=== PATIENT | male | born 1985 | race Caucasian/White ===

== ENCOUNTER 2016-11-24 04:07 | Emergency (ER) | payer SELFPAY ==
[2016-11-24 04:28] VITALS: BP 134/95; TEMP 97.9; O2SAT 96
[2016-11-24] MEDS ORDERED: predniSONE 20 MG TAB PO ONE (04:42)
[2016-11-24] MEDS ORDERED: SULFA/TRIMETH 800/160 (DS) TAB 1 EA TAB PO ONE (04:44)
--- NOTE | 2016-11-24 04:45 | ED.PDOC ---
History of Present Illness - General Chief Complaint: Skin/Abrasion/Tear Stated Complaint: rash Time Seen by Provider: 11/24/16 04:35 Source: patient Exam Limitations: no limitations - History of Present Illness Initial Comments: the patient is a 31-year-old male presenting to the emergency room secondary to rash caused by poison niurka it has been present for more than one week. The patient has been putting on calamine lotion. He does have one area medial upper thigh that does appear to be developing a possible bacterial cellulitis. No evidence of possible superimposed infection elsewhere though the rash is fairly extensive on his arms and legs both the patient is fairly certain this is from poison niurka. Timing/Duration: 1 week Severity: moderate Improving Factors: nothing Worsening Factors: nothing Associated Symptoms: denies symptoms Allergies/Adverse Reactions: Allergies NO KNOWN ALLERGY Allergy (Verified 11/24/16 04:29) Home Medications: Ambulatory Orders Allopurinol [Zyloprim] 200 mg PO DAILY 11/24/16 Sulfamethoxazole-Trimethoprim [Bactrim Ds 800-160 mg] 1 tab PO BID #10 tab 11/24 predniSONE [Prednisone] 40 mg PO DAILY #10 tab 11/24/16 Review of Systems - Review of Systems Constitutional: States: no symptoms reported EENTM: States: no symptoms reported Respiratory: States: no symptoms reported Cardiology: States: no symptoms reported Gastrointestinal/Abdominal: States: no symptoms reported Genitourinary: States: no symptoms reported Musculoskeletal: States: no symptoms reported Skin: States: see HPI Neurological: States: no symptoms reported Endocrine: States: no symptoms reported All other Systems: No Change from Baseline Past Medical History (General) - Patient Medical History Hx Seizures: No Hx Stroke: No Hx Dementia: No Hx Asthma: No Hx of COPD: No Hx Cardiac Disorders: No Hx Congestive Heart Failure: No Hx Pacemaker: No Hx Hypertension: No Hx Thyroid Disease: No Hx Diabetes: Yes Hx Gastroesophageal Reflux: No Hx Renal Disease: No Hx Cancer: No Hx of HIV: No Hx Hepatitis C: No Hx MRSA: No Surgical History: no surgical history - Vaccination History Hx Tetanus, Diphtheria Vaccination: No Hx Influenza Vaccination: No Hx Pneumococcal Vaccination: No Immunizations Up to Date: No - Social History Hx Tobacco Use: No Hx Chewing Tobacco Use: No Hx Alcohol Use: Yes Hx Substance Use: No Hx Substance Use Treatment: No Hx Depression: No Feels Threatened In Home Enviroment: No Feels Threatened In a Relationship: No Hx Physical Abuse: No Hx Emotional Abuse: No Hx Suspected Abuse: No Family Medical History - Family History Mother Family History: Unknown Living Status: Still Living Physical Exam - Physical Exam General Appearance: Alert, Comfortable, No apparent distress Eye Exam: bilateral normal Ears, Nose, Throat: normal ENT inspection, normal pharynx Neck: full range of motion Respiratory: no respiratory distress, no accessory muscle use Cardiovascular/Chest: normal peripheral pulses, no edema Peripheral Pulses: radial,right: 2+, radial,left: 2+ Rectal Exam: deferred Back Exam: normal inspection Extremity: normal range of motion, non-tender, no pedal edema, no calf tenderness, normal capillary refill Neurologic: alert, normal mood/affect, oriented x 3 Skin Exam: rash - as described above Comments: Vital Signs - 24 hr 11/24/16 04:25 Temperature 97.9 F Pulse Rate [ 75 monitor] Respiratory 20 Rate Blood Pressure 134/95 [Right Arm] O2 Sat by Pulse 96 Oximetry Progress - Progress Progress: 11/24/16 04:45 the patient is a 31-year-old male presenting with contact dermatitis from poison niurka or poison oak. He does have what area of possible superimposed bacterial cellulitis. The patient was placed on Bactrim for 5 days and oral prednisone for 5 days. He needs to keep well-hydrated. Additionally he can put topical Aquaphor on the areas that are breaking out. He additionally needs to wash clothes or any tools that were used and exposed and a soap that is good at breaking down oils such as a dish soap like Palmolive were gone. ER warnings were given for any worsening. He additionally continues an antihistamine such as Zyrtec once or twice daily to help reduce his allergic response. Departure - Departure Clinical Impression: Contact dermatitis due to poison niurka Disposition: Discharge to Home or Self Care Condition: Fair Departure Forms: ED Discharge - Pt. Copy, Patient Portal Self Enrollment Instructions: DI for Contact Dermatitis, DI for Poison Niurka Allergy Diet: regular diet Activity: increase activity as tolerated Referrals: Lawrence Croft MD [Primary Care Provider] - 1-2 Weeks Prescriptions: Sulfamethoxazole-Trimethoprim [Bactrim Ds 800-160 mg] 1 tab PO BID #10 tab predniSONE [Prednisone] 40 mg PO DAILY #10 tab Home Medications: Ambulatory Orders Allopurinol [Zyloprim] 200 mg PO DAILY 11/24/16 Sulfamethoxazole-Trimethoprim [Bactrim Ds 800-160 mg] 1 tab PO BID #10 tab 11/24 predniSONE [Prednisone] 40 mg PO DAILY #10 tab 11/24/16 Additional Instructions: the patient is a 31-year-old male presenting with contact dermatitis from poison niurka or poison oak. He does have what area of possible superimposed bacterial cellulitis. The patient was placed on Bactrim for 5 days and oral prednisone for 5 days. He needs to keep well-hydrated. Additionally he can put topical Aquaphor on the areas that are breaking out. He additionally needs to wash clothes or any tools that were used and exposed and a soap that is good at breaking down oils such as a dish soap like Palmolive were gone. ER warnings were given for any worsening. He additionally continues an antihistamine such as Zyrtec once or twice daily to help reduce his allergic response.
== END 2016-11-24 05:03 | disposition home or self-care (01) ==
LOC: ER 04:07
DX: L23.7 Allergic contact dermatitis due to plants, except food (principal); E11.9 Type 2 diabetes mellitus without complications; Z79.899 Other long term (current) drug therapy

== ENCOUNTER 2017-04-10 16:32 | Emergency (ER) | payer OTHER ==
[2017-04-10 16:40] VITALS: BP 125/93; TEMP 98.7; O2SAT 96
[2017-04-10] MEDS ORDERED: TETANUS,DIPHTHERIA,PERTUSSIS 1 EA SYG IM ONE (16:42)
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
[2017-04-10] MEDS ORDERED: LIDOCAINE 1% 10 ML VIAL INJ ONE (16:50)
[2017-04-10] MEDS ORDERED: NEOMYCIN-BACITRACIN-POLYMYXIN 0.9 GM UD TOP ONE (16:51)
[2017-04-10] MEDS ORDERED: CHLORHEXIDINE GLUCONATE 4 % 15 ML UD TOP ONE (16:51)
[2017-04-10] MEDS ORDERED: CEPHALEXIN MONOHYDRATE 500 MG CAP PO ONE (17:39)
== END 2017-04-10 18:02 | disposition home or self-care (01) ==
LOC: ER 16:32
DX: S61.412A Laceration without foreign body of left hand, initial encounter (principal); F17.220 Nicotine dependence, chewing tobacco, uncomplicated; Z23 Encounter for immunization; W22.8XXA Striking against or struck by other objects, initial encounter; Y92.89 Other specified places as the place of occurrence of the external cause